=== PATIENT | male | born 1945 | race Caucasian/White ===

== ENCOUNTER → 2022-02-07 | Outpatient (CLI) | payer OTHER, MEDICARE | LOC: M SOG 10:05 | PROVIDERS: ATTEND Orthopaedic Surgery Adult Reconstructive Orthopaedic Surgery | DX: M25.552 Pain in left hip (principal) ==

== ENCOUNTER 2022-03-04 10:06 | Outpatient (RCR) | payer OTHER ==
[2022-03-07] MEDS ORDERED: PROS5TAB PO (08:48)
[2022-03-07] MEDS ORDERED: VITMTA PO (08:48)
[2022-03-07] MEDS ORDERED: ATOR80TA59 PO (08:48)
[2022-03-07] MEDS ORDERED: METF-839 PO (08:48)
[2022-03-07] MEDS ORDERED: RAMI1CAP22 PO (08:48)
[2022-03-07] MEDS ORDERED: TAMS1CAP17 PO (08:48)
[2022-03-07] MEDS ORDERED: VITA1CHW8 PO (08:48)
[2022-03-07] MEDS ORDERED: TRAM50TA2 PO (08:48)
[2022-03-07] MEDS ORDERED: BAYE81TA10 PO (08:48)
[2022-03-07] MEDS ORDERED: ACET-683 PO (08:48)
[2022-03-07] MEDS ORDERED: AMLO1TAB24 PO (08:48)
[2022-03-07] MEDS ORDERED: CELE1CAP9 PO (08:48)
== END 2022-03-16 ==
LOC: M PT 10:06
PROVIDERS: ATTEND Orthopaedic Surgery Adult Reconstructive Orthopaedic Surgery
DX: M16.32 Unilateral osteoarthritis resulting from hip dysplasia, left hip (principal)

== ENCOUNTER → 2022-03-04 | Outpatient (CLI) | payer OTHER ==
[~2022-03-04] MED LIST: ACET-683 PO; AMLO1TAB24 PO; ATOR80TA59 PO; BAYE81TA10 PO; CELE1CAP9 PO; METF-839 PO; PROS5TAB PO; RAMI1CAP22 PO; TAMS1CAP17 PO; TRAM50TA2 PO; VITA1CHW8 PO; VITMTA PO
== END ==
LOC: M PLAIMG 09:17
PROVIDERS: ATTEND Orthopaedic Surgery Adult Reconstructive Orthopaedic Surgery
DX: M16.32 Unilateral osteoarthritis resulting from hip dysplasia, left hip (principal); M25.851 Other specified joint disorders, right hip; M85.69 Other cyst of bone, multiple sites; M25.861 Other specified joint disorders, right knee; M25.852 Other specified joint disorders, left hip; M25.862 Other specified joint disorders, left knee

== ENCOUNTER → 2022-03-13 | Outpatient (CLI) | payer OTHER | LOC: M LABSMTC 09:30 | PROVIDERS: ATTEND Anesthesiology | DX: Z01.812 Encounter for preprocedural laboratory examination (principal); Z11.52 Encounter for screening for COVID-19 ==

== ENCOUNTER → 2022-03-13 | Outpatient (CLI) | payer OTHER ==
[2022-03-13 10:50] LABS: HEMATOCRIT 39.8 % (42.0-52.0); MEAN CORPUSCULAR HGB CONC 32.7 g/dl (32.0-36.5); MEAN CORPUSCULAR VOLUME 82.6 fl (80.0-96.0); PLATELET COUNT, AUTOMATED 289 10^3/uL (150-450); RED BLOOD COUNT 4.82 10^6/uL (4.30-6.10); WHITE BLOOD COUNT 8.8 10^3/uL (4.0-10.0)
[2022-03-13 11:27] LABS: ALBUMIN 3.5 GM/DL (3.2-5.2); BILIRUBIN,TOTAL 0.6 MG/DL (0.2-1.0); CALCIUM LEVEL 9.5 MG/DL (8.8-10.2); CREATININE FOR GFR 1.28 MG/DL (0.70-1.30); POTASSIUM SERUM 4.2 MEQ/L (3.5-5.1); TOTAL PROTEIN 7.5 GM/DL (6.4-8.2)
== END ==
LOC: M RAD 09:35
PROVIDERS: ATTEND Orthopaedic Surgery Adult Reconstructive Orthopaedic Surgery
DX: Z01.818 Encounter for other preprocedural examination (principal)

== ENCOUNTER 2022-03-18 08:48 | Day surgery (SDC) | payer OTHER ==
[~2022-03-18] VITALS: Ht 175.3 cm; Wt 88.0 kg
[2022-03-18] VITALS (7 sets, daily range): BP systolic 120–132; BP diastolic 67–74
[~2022-03-18 08:48] MED LIST changes: +ACETAMINOPHEN 500 MG TAB PO ONE; +NAPROXEN 250 MG TAB PO ONE; +NS 1,000 ML IV ONE; +PREGABALIN 25 MG CAP (LYRICA) PO ONE; +ROPIVA 125MG/EPINEPH 0.25MG/CLONID 40MCG/KETOR 15MG IN NS 50ML SYRINGE PA ONE; +ceFAZolin SOD 2 GM in IV 1 EA IV ONE; +dexameTHASONE 4 MG/ML 1ML VIAL (J1100 PER 1MG) IV ONE
[2022-03-18] MEDS ORDERED: LR 1,000 ML IV SCH ×3 (09:15→15:00)
[2022-03-18] MEDS ORDERED: TRANEXAMIC ACID 100 MG/ML 10ML VIAL As Ordered ONE ×2 (10:44→10:45)
[2022-03-18] MEDS ORDERED: fentaNYL 100 MCG/2 ML INJECTION As Ordered ONE (10:51)
[2022-03-18] MEDS ORDERED: propofoL 500 MG/50 ML VIAL As Ordered ONE (10:51)
[2022-03-18] MEDS ORDERED: MIDAZOLAM INJ 2MG/2ML VIAL (J2250 PER 1MG) As Ordered ONE (10:51)
[2022-03-18] MEDS ORDERED: PHENYLEPHRINE 10MG/ML 1ML VIAL (J2370 PER 1) As Ordered ONE (10:51)
[2022-03-18] MEDS ORDERED: LIDOCAINE 2% 100MG/5ML SDV (FOR ANES.) As Ordered ONE (10:51)
[2022-03-18] MEDS ORDERED: oxyCODONE 5MG TAB PO PRN ×3 (14:15→14:55)
[2022-03-18] MEDS ORDERED: ONDANSETRON 4MG 2ML VIAL IV PRN ×2 (14:15→14:55)
[2022-03-18] MEDS ORDERED: MORPHINE 2 MG/ML 1ML VIAL IV PRN (14:15)
[2022-03-18] MEDS ORDERED: fentaNYL 100 MCG/2 ML INJECTION IV PRN (14:15)
[2022-03-18] MEDS ORDERED: SENNA 8.6 MG TAB (SENOKOT) PO PRN (14:55)
[2022-03-18] MEDS ORDERED: traMADol 50 MG TAB PO PRN (14:55)
[2022-03-18] MEDS ORDERED: ACETAMINOPHEN 500 MG TAB PO PRN (15:30)
[2022-03-18] MEDS: ACETAMINOPHEN TAB 650MG DOSE (2X325MG) PO SCH (18:02)
[2022-03-18] MEDS: ceFAZolin SOD 2 GM in IV 1 EA IV SCH (18:02)
[2022-03-18] MEDS: ASPIRIN 81MG ENTERIC TABLET PO SCH (21:26)
[2022-03-18] MEDS: DOCUSATE SODIUM 100MG CAPSULE PO SCH (21:26)
[2022-03-18] MEDS: NAPROXEN 250 MG TAB PO SCH (21:27)
[2022-03-18] MEDS: traMADol 50 MG TAB PO SCH (21:27)
[2022-03-19] MEDS: ACETAMINOPHEN TAB 650MG DOSE (2X325MG) PO SCH ×3 (01:03→12:00)
[2022-03-19 02:00] VITALS: BP 133/71
[2022-03-19] MEDS: ceFAZolin SOD 2 GM in IV 1 EA IV SCH ×2 (03:38→09:56)
[2022-03-19 06:00] VITALS: BP 134/74
[2022-03-19 07:35] LABS: HEMATOCRIT 33.5 % (42.0-52.0); HEMOGLOBIN 10.9 g/dl (13.5-17.5); MEAN CORPUSCULAR HEMOGLOBIN 27.5 pg (27.0-33.0); MEAN CORPUSCULAR HGB CONC 32.5 g/dl (32.0-36.5); MEAN CORPUSCULAR VOLUME 84.4 fl (80.0-96.0); PLATELET COUNT, AUTOMATED 243 10^3/uL (150-450); RED BLOOD COUNT 3.97 10^6/uL (4.30-6.10); WHITE BLOOD COUNT 20.6 10^3/uL (4.0-10.0)
[2022-03-19 08:05] LABS: CALCIUM LEVEL 8.3 MG/DL (8.8-10.2); CREATININE FOR GFR 1.37 MG/DL (0.70-1.30); GLOMERULAR FILTRATION RATE 53.6 (>42); POTASSIUM SERUM 4.5 MEQ/L (3.5-5.1)
[2022-03-19] MEDS ORDERED: TAMSULOSIN 0.4 MG CAP PO SCH (09:00)
[2022-03-19] MEDS ORDERED: MULTIVITAMINS/MINERALS THERAP 1 TAB PO SCH (09:00)
[2022-03-19] MEDS ORDERED: ASCORBIC ACID 500 MG TAB PO SCH (09:00)
[2022-03-19] MEDS ORDERED: FINASTERIDE 5MG TAB PO SCH (09:00)
[2022-03-19] MEDS ORDERED: ATORVASTATIN 20 MG TAB PO SCH (09:00)
[2022-03-19] MEDS ORDERED: FERROUS SULFATE 325MG TAB PO SCH (09:00)
[2022-03-19] MEDS ORDERED: amLODIPine 5 MG TAB PO SCH (09:00)
[2022-03-19 09:10] VITALS: BP 129/71
[2022-03-19] MEDS: NAPROXEN 250 MG TAB PO SCH (09:11)
[2022-03-19] MEDS: ASPIRIN 81MG ENTERIC TABLET PO SCH (09:11)
[2022-03-19] MEDS: traMADol 50 MG TAB PO SCH (09:11)
[2022-03-19] MEDS: DOCUSATE SODIUM 100MG CAPSULE PO SCH (09:17)
[2022-03-19] MEDS ORDERED: SENN18TA PO (10:06)
[2022-03-19] MEDS ORDERED: OXYC-517 PO (10:06)
[2022-03-19] MEDS ORDERED: ASCO50TA PO (10:06)
[2022-03-19] MEDS ORDERED: ASPI-551 PO (10:06)
== END 2022-03-19 15:10 | disposition home or self-care (01) ==
LOC: M SDC 08:48 → M MS5PR 14:05 → UNDOADMIN 14:05 → M MS5PR 15:05 → M SDC 03-19 15:10 → UNDODISIN 03-19 15:10
PROVIDERS: ATTEND Orthopaedic Surgery Adult Reconstructive Orthopaedic Surgery
DX: M16.12 Unilateral primary osteoarthritis, left hip (principal); I10 Essential (primary) hypertension; N40.0 Benign prostatic hyperplasia without lower urinary tract symptoms; E11.9 Type 2 diabetes mellitus without complications; J44.9 Chronic obstructive pulmonary disease, unspecified; Z87.891 Personal history of nicotine dependence; Z79.82 Long term (current) use of aspirin; Z79.84 Long term (current) use of oral hypoglycemic drugs; Z79.899 Other long term (current) drug therapy
CPT/HCPCS: 27130; 36415; 72170; 80048; 85027; 88304; 88311; 96361; 96365; 96366; 97161; 97165; 97530; 97535; C1776; J0690; J1100; J2250; J2370; J3010; S2900

== ENCOUNTER → 2022-04-02 | Outpatient (CLI) | payer OTHER ==
[~2022-04-02] MED LIST changes: -ACETAMINOPHEN 500 MG TAB PO ONE; +ASCO50TA PO; +ASPI-551 PO; -NAPROXEN 250 MG TAB PO ONE; -NS 1,000 ML IV ONE; +OXYC-517 PO; -PREGABALIN 25 MG CAP (LYRICA) PO ONE; -ROPIVA 125MG/EPINEPH 0.25MG/CLONID 40MCG/KETOR 15MG IN NS 50ML SYRINGE PA ONE; +SENN18TA PO; -ceFAZolin SOD 2 GM in IV 1 EA IV ONE; -dexameTHASONE 4 MG/ML 1ML VIAL (J1100 PER 1MG) IV ONE
== END ==
LOC: M SOG 08:02
PROVIDERS: ATTEND Orthopaedic Surgery Adult Reconstructive Orthopaedic Surgery
DX: M16.12 Unilateral primary osteoarthritis, left hip (principal)

== ENCOUNTER → 2023-04-16 | Outpatient (CLI) | payer MEDICARE, OTHER ==
[~2023-04-16] MED LIST changes: +FINA-48 PO; -PROS5TAB PO; +SENN-111 PO; -SENN18TA PO
== END ==
LOC: M SOG 12:34
PROVIDERS: ATTEND Orthopaedic Surgery
DX: M16.11 Unilateral primary osteoarthritis, right hip (principal); M51.36 Other intervertebral disc degeneration, lumbar region; Z96.642 Presence of left artificial hip joint

== ENCOUNTER 2024-02-08 12:39 | Day surgery (SDC) | payer OTHER, MEDICARE ==
[~2024-02-08] VITALS: Ht 175.3 cm; Wt 89.3 kg
[~2024-02-08 12:39] MED LIST changes: +CELE0.09 PO; -CELE1CAP9 PO; +LR 1,000 ML IV SCH; -RAMI1CAP22 PO; +RAMI2.5C42 PO
[2024-02-08] MEDS: PHENYLEPHRINE 2.5% OPHTH SOL 2ML OD SCH (13:15)
[2024-02-08] MEDS: ATROPINE SULFATE 1% OPHTH SOLN 2ML BTL OD SCH (13:15)
[2024-02-08] MEDS: TETRACAINE 0.5% OPHTH SOLN 4ML OD SCH (13:16)
[2024-02-08] MEDS: FLURBIPROFEN 0.03% OPHTH SOLN 2.5 ML OD SCH (13:16)
[2024-02-08] MEDS ORDERED: MIDAZOLAM INJ 2MG/2ML VIAL As Ordered ONE (14:35)
[2024-02-08] MEDS: LIDOCAINE 1% SDV 5ML VIAL As Ordered ONE (14:45)
[2024-02-08] MEDS: CEFUROXIME 1MG/0.1ML INTRACAMERAL INJ As Ordered ONE (14:49)
[2024-02-08 15:15] VITALS: BP 151/73; TEMP 97.9; O2SAT 95
== END 2024-02-08 15:40 | disposition home or self-care (01) ==
LOC: M SDC 12:39
PROVIDERS: ATTEND Ophthalmology
DX: E11.36 Type 2 diabetes mellitus with diabetic cataract (principal); H25.11 Age-related nuclear cataract, right eye; H21.81 Floppy iris syndrome; I10 Essential (primary) hypertension; E78.00 Pure hypercholesterolemia, unspecified; J44.9 Chronic obstructive pulmonary disease, unspecified; N40.0 Benign prostatic hyperplasia without lower urinary tract symptoms; Z79.899 Other long term (current) drug therapy; Z79.82 Long term (current) use of aspirin; Z79.84 Long term (current) use of oral hypoglycemic drugs; Z87.891 Personal history of nicotine dependence
CPT/HCPCS: 66982; J0697; J2250; V2632

== ENCOUNTER 2024-03-07 11:14 | Day surgery (SDC) | payer MEDICARE, OTHER ==
[~2024-03-07] VITALS: Ht 172.7 cm; Wt 90.7 kg
[2024-03-07] MEDS: PHENYLEPHRINE 2.5% OPHTH SOL 2ML OS SCH (13:45)
[2024-03-07] MEDS: ATROPINE SULFATE 1% OPHTH SOLN 2ML BTL OS SCH (13:45)
[2024-03-07] MEDS: TETRACAINE 0.5% OPHTH SOLN 4ML OS SCH (13:45)
[2024-03-07] MEDS: FLURBIPROFEN 0.03% OPHTH SOLN 2.5 ML OS SCH (13:45)
[2024-03-07] MEDS ORDERED: MIDAZOLAM INJ 2MG/2ML VIAL As Ordered ONE (14:59)
[2024-03-07] MEDS: LIDOCAINE 1% SDV 5ML VIAL As Ordered ONE (15:02)
[2024-03-07] MEDS: CEFUROXIME 1MG/0.1ML INTRACAMERAL INJ As Ordered ONE (15:03)
[2024-03-07 15:24] VITALS: BP 129/67; TEMP 97.9; O2SAT 96
== END 2024-03-07 15:46 | disposition home or self-care (01) ==
LOC: M SDC 11:14
PROVIDERS: ATTEND Ophthalmology
DX: H25.12 Age-related nuclear cataract, left eye (principal); I10 Essential (primary) hypertension; I48.91 Unspecified atrial fibrillation; E78.5 Hyperlipidemia, unspecified; E11.9 Type 2 diabetes mellitus without complications; J44.9 Chronic obstructive pulmonary disease, unspecified; Z79.82 Long term (current) use of aspirin; Z79.84 Long term (current) use of oral hypoglycemic drugs; Z79.899 Other long term (current) drug therapy
CPT/HCPCS: 66984; J0697; J2250; V2632